=== PATIENT | male | born 1970 | race Caucasian/White ===

== ENCOUNTER 2021-10-31 21:53 | Emergency (ER) | payer BC ==
--- NOTE | 2021-10-31 22:16 | ER ---
Nurse's Notes [facility] Name: Ralf Starkey Age: 51 yrs Sex: Male : 1970 Arrival Date: 10/31/2021 Time: 21:54 Bed 19 Private MD: Diagnosis: Cellulitis of left lower limb Presentation: 10/31 22:05 Chief complaint: Patient states: my left foot is hurting and its swollen. It started aa9 this morning. Coronavirus screen: At this time, the client does not indicate any symptoms associated with coronavirus-19. Ebola Screen: No symptoms or risks identified at this time. Initial Sepsis Screen: Does the patient meet any 2 criteria? No. Patient's initial sepsis screen is negative. Does the patient have a suspected source of infection? No. Patient's initial sepsis screen is negative. Risk Assessment: Do you want to hurt yourself or someone else? Patient reports no desire to harm self or others. Onset of symptoms was October 31, 2021. 22:05 Method Of Arrival: Ambulatory aa9 22:05 Acuity: JOHN 3 aa9 Triage Assessment: 22:09 General: Appears distressed. aa9 22:28 General: Behavior is calm, cooperative, appropriate for age. Pain: Pain currently is 4 tw5 out of 10 on a pain scale. Historical: - Allergies: 22:07 PENICILLINS; aa9 - PMHx: 22:07 Diabetes mellitus; Hypercholesterolemia; aa9 - PSHx: 22:07 Appendectomy; gastric bypass; aa9 - Immunization history:: Adult Immunizations up to date. - Social history:: Smoking status: Patient denies any tobacco usage or history of. Screenin:27 Abuse screen: Denies threats or abuse. Denies injuries from another. Nutritional tw5 screening: No deficits noted. Tuberculosis screening: No symptoms or risk factors identified. Fall Risk None identified. Assessment: 22:27 General: Appears in no apparent distress. tw5 Vital Signs: 22:05 BP 109 / 88; Pulse 83; Resp 16 S; Temp 98.7(O); Pulse Ox 99% on R/A; Weight 114.76 kg aa9 (R); Height 6 ft. 3 in. (190.50 cm) (R); Pain 10/10; 22:05 Body Mass Index 31.62 (114.76 kg, 190.50 cm) aa9 ED Course: 21:54 Patient arrived in ED. ja2 21:57 Juniad Peralta DO is Attending Physician. ms3 22:07 Triage completed. aa9 22:09 Arm band placed on. aa9 22:15 Kash Burgos DO is Referral Physician. ms3 22:27 Patient has correct armband on for positive identification. tw5 22:27 No provider procedures requiring assistance completed. Patient did not have IV access tw5 during this emergency room visit. Administered Medications: 22:27 Drug: Doxycycline 100 mg Route: PO; tw5 22:28 Follow up: Response: No adverse reaction; Medication administered at discharge. tw5 Medication: 22:27 VIS not applicable for this client. tw5 Outcome: :15 Discharge ordered by . ms3 22:27 Discharged to home ambulatory. tw5 22:27 Condition: good 22:27 Discharge instructions given to patient, Instructed on discharge instructions, follow up and referral plans. medication usage, Demonstrated understanding of instructions, follow-up care, medications, Prescriptions given X 1. 22:28 Patient left the ED. tw5 Signatures: Junaid Peralta DO DO ms3 Cori Carlton ja2 Roman Etta tw5 Dominique Alegria, RN RN aa9
--- NOTE | 2021-10-31 22:16 | EDPHYS ---
Physician Documentation [facility] Name: Ralf Starkey Age: 51 yrs Sex: Male : 1970 Arrival Date: 10/31/2021 Time: 21:54 Bed 19 Private MD: ED Physician Junaid Peralta HPI: 10/31 22:15 This 51 yrs old Male presents to ER via Ambulatory with complaints of Feet Swelling. ms3 22:15 The patient presents with cellulitis of the left foot. Description: erythematous, hot, ms3 warm. Onset: The symptoms/episode began/occurred today. Possible cause(s): unknown. Associated signs and symptoms: Pertinent positives: erythema, swelling, Pertinent negatives: discharge, drainage, fever. Modifying factors: the symptoms are alleviated by nothing, the symptoms are aggravated by walking. Historical: - Allergies: 22:07 PENICILLINS; aa9 - PMHx: 22:07 Diabetes mellitus; Hypercholesterolemia; aa9 - PSHx: 22:07 Appendectomy; gastric bypass; aa9 - Immunization history:: Adult Immunizations up to date. - Social history:: Smoking status: Patient denies any tobacco usage or history of. ROS: 22:15 Constitutional: Negative for fever, and chills. Neck: Negative for injury, pain, and ms3 swelling, Cardiovascular: Negative for chest pain, and palpitations. Respiratory: Negative for shortness of breath, cough, wheezing, and pleuritic chest pain, Abdomen/GI: Negative for abdominal pain, nausea, vomiting, diarrhea, and constipation, Neuro: Negative for headache, weakness, numbness, tingling. 22:15 Skin: Positive for rash, swelling. 22:15 All other systems are negative. Exam: 22:15 Constitutional: This is a well developed, well nourished patient who is awake, alert, ms3 and in no acute distress. Head/Face: Normocephalic, atraumatic. Neck: Trachea midline, no cervical lymphadenopathy. Supple, full range of motion without nuchal rigidity, or vertebral point tenderness. No Meningismus. Chest/axilla: Normal chest wall appearance and motion. Nontender with no deformity. Cardiovascular: Regular rate and rhythm with a normal S1 and S2. No gallops, murmurs, or rubs. Normal PMI, no JVD. No pulse deficits. Respiratory: Lungs have equal breath sounds bilaterally, clear to auscultation and percussion. No rales, rhonchi or wheezes noted. No increased work of breathing, no retractions or nasal flaring. Abdomen/GI: Soft, non-tender, with normal bowel sounds. No distension or tympany. No guarding or rebound. No evidence of tenderness throughout. 22:15 Psych: Awake, alert, with orientation to person, place and time. Behavior, mood, and affect are within normal limits. 22:15 Skin: cellulitis, that is moderate, on the left foot. Vital Signs: 22:05 BP 109 / 88; Pulse 83; Resp 16 S; Temp 98.7(O); Pulse Ox 99% on R/A; Weight 114.76 kg aa9 (R); Height 6 ft. 3 in. (190.50 cm) (R); Pain 10/10; 22:05 Body Mass Index 31.62 (114.76 kg, 190.50 cm) aa9 MDM: 22:15 Patient medically screened. ms3 22:15 Data reviewed: vital signs, nurses notes, and as a result, I will discharge patient. ms3 Counseling: I had a detailed discussion with the patient and/or guardian regarding: the historical points, exam findings, and any diagnostic results supporting the discharge/admit diagnosis, the need for outpatient follow up, to return to the emergency department if symptoms worsen or persist or if there are any questions or concerns that arise at home. ED course: Discussed physical exam findings with patient. Patient to follow-up with Dr. Burgos or PMD in 2 to 3 days. Patient understands and agrees with plan. All questions were answered. Return precautions discussed include worsening symptoms, or any other concerns. . Administered Medications: 22:27 Drug: Doxycycline 100 mg Route: PO; tw5 22:28 Follow up: Response: No adverse reaction; Medication administered at discharge. tw5 Disposition Summary: 10/31/21 22:15 Discharge Ordered Location: Home ms3 Condition: Stable ms3 Diagnosis - Cellulitis of left lower limb ms3 Followup: ms3 - With: Kash Burgos DO - When: 2 - 3 days - Reason: Re-evaluation by your physician Discharge Instructions: - Discharge Summary Sheet ms3 - Cellulitis, Adult ms3 Forms: - Medication Reconciliation Form ms3 - Thank You Letter ms3 - Antibiotic Education ms3 - Prescription Opioid Use ms3 Prescriptions: - Doxycycline Hyclate 100 mg Oral Tablet - take 1 tablet by ORAL route every 12 hours; 20 tablet; Refills: 0, Product ms3 Selection Permitted Signatures: Junaid Peralta, DO ms3 Etta Owens tw5 Dominique Alegria, RN RN aa9
[2021-10-31] MEDS ORDERED: DOXYCYCLINE 100 MG CAP PO ONE (22:29)
[2021-10-31 23:30] VITALS: BP 109/88; TEMP 98.7; O2SAT 99
== END 2021-10-31 22:28 | disposition home or self-care (01) ==
LOC: ER 21:53
DX: L03.116 Cellulitis of left lower limb (principal); E11.9 Type 2 diabetes mellitus without complications; Z88.0 Allergy status to penicillin
CPT/HCPCS: 99283